=== PATIENT | male | born 1995 | race African-American/Black ===

== ENCOUNTER 2016-09-23 01:52 | Emergency (ER) | payer BC, OTHER ==
[~2016-09-23] VITALS: Ht 185.4 cm; Wt 82.0 kg
[2016-09-23 05:07] VITALS: BP 115/63
== END 2016-09-23 06:33 | disposition home or self-care (01) ==
LOC: ER 02:57
DX: T18.0XXA Foreign body in mouth, initial encounter (principal); F17.210 Nicotine dependence, cigarettes, uncomplicated; G95.89 Other specified diseases of spinal cord; X58.XXXA Exposure to other specified factors, initial encounter; Y93.89 Activity, other specified; Y92.89 Other specified places as the place of occurrence of the external cause
CPT/HCPCS: 70490; 71250; 99284

== ENCOUNTER 2024-06-06 18:18 | Inpatient (IN) | payer BC, OTHER ==
[~2024-06-06] VITALS: Ht 182.9 cm; Wt 83.5 kg
[2024-06-06] MEDS: MORPHINE SULFATE 4 MG/ML INJ (FOR IV/IM USE) IV STA (19:04)
[2024-06-06] MEDS: ONDANSETRON HCL 4MG/2ML INJ IV STA (19:05)
[2024-06-06 20:01] LABS: BASOPHILS % 0.2 % (0.0-2.0); EOSINOPHILS % 0.1 % (0.0-5.0); HEMATOCRIT. 43.4 % (42.0-52.0); HEMOGLOBIN. 14.4 g/dL (14.0-18.0); LYMPHOCYTES % 10.5 % (20.0-50.0); MEAN CORPUSCULAR HEMOGLOBIN 29.7 pg (28.0-32.0); MEAN CORPUSCULAR HGB CONC 33.3 g/dL (31.0-37.0); MEAN CORPUSCULAR VOLUME 89.2 fL (80.0-94.0); MEAN PLATELET VOLUME 8.9 fl (7.4-10.4); MONOCYTES % 10.6 % (2.0-8.0); NEUTROPHILS % 78.6 % (40.0-76.0); PLATELET 236 x1000/uL (130-400); RED BLOOD CELL COUNT 4.86 mill/uL (4.7-6.1); RED CELL DISTRIBUTION WIDTH 14.5 % (11.6-14.6); WHITE BLOOD COUNT 12.2 x1000/uL (4.5-11.0)
[2024-06-06 20:12] LABS: CHLORIDE 96 mEq/L (98-107); POTASSIUM 4.1 mEq/L (3.5-5.1); SODIUM 135 mEq/L (136-145)
[2024-06-06 20:13] LABS: CALCIUM 9.6 mg/dL (8.7-10.4); CARBON DIOXIDE 21 mEq/L (21-32); INR 1.1; PARTIAL THROMBOPLASTIN TIME 30.5 sec (23.4-31.0); PROTHROMBIN TIME 11.8 sec (9.6-11.0)
[2024-06-06 20:18] LABS: CREATININE 0.9 mg/dL (0.6-1.3); GLUCOSE 70 mg/dL (70-105); UREA NITROGEN BLOOD 12 mg/dL (9-23)
[2024-06-06 20:20] LABS: TROPONIN I HIGH SENSITIVITY 7 ng/L (3.0-53)
[2024-06-06] MEDS: HYDROMORPHONE HCL/PF 2MG/ML INJ IV ONE (20:35)
[2024-06-07] MEDS ORDERED: CLONIDINE 0.1MG TABLET PO PRN
[2024-06-07] MEDS ORDERED: LORAZEPAM 0.5MG TABLET PO PRN
[2024-06-07] MEDS ORDERED: IPRATROPIUM/ALBUTEROL 0.5-3(2.5)MG/3ML NEB HHN PRN
[2024-06-07] MEDS ORDERED: ONDANSETRON HCL 4MG/2ML INJ IV PRN
[2024-06-07] MEDS ORDERED: ACETAMINOPHEN 325MG TABLET PO PRN
[2024-06-07] MEDS ORDERED: MAGNESIUM/ALUMINUM HYDROXIDE/SIMETHICONE 30ML UDC PO PRN
[2024-06-07] MEDS ORDERED: DOCUSATE SODIUM 100MG CAPSULE PO PRN
[2024-06-07] MEDS: SODIUM CHLORIDE 0.9% 1,000 ML IV ONE (00:27)
[2024-06-07 00:39] LABS: TROPONIN I HIGH SENSITIVITY 9 ng/L (3.0-53)
[2024-06-07] MEDS: HYDROMORPHONE HCL/PF 2MG/ML INJ IV ONE (01:08)
[2024-06-07] MEDS: IOHEXOL-350 100 ML BOTTLE ONE (03:00)
[2024-06-07 03:47] LABS: TROPONIN I HIGH SENSITIVITY 15 ng/L (3.0-53)
[2024-06-07] MEDS: PANTOPRAZOLE 40MG DR TABLET PO SCH (09:13)
[2024-06-07] MEDS: KETOROLAC 30MG/ML VIAL IV NR (09:13)
[2024-06-07] MEDS ORDERED: AMLODIPINE 2.5MG TABLET PO NR (11:15)
[2024-06-07 12:00] VITALS: BP 113/75; PULSE 61; RESP 20; TEMP 36.7; O2SAT 100
[2024-06-07] MEDS: GUAIFENESIN 200MG/10ML SUGAR FREE UDC PO PRN (14:40)
[2024-06-07 16:00] VITALS: BP 113/70; PULSE 90; RESP 20; TEMP 36.1; O2SAT 98
[2024-06-07 16:04] VITALS: BP 113/75; PULSE 100; RESP 16; TEMP 37
[2024-06-07] MEDS ORDERED: PNEUMOCOCCAL 20-VAL CONJ-DIP CRM 0.5ML IM ONE (18:00)
[2024-06-07] MEDS ORDERED: INFLUENZA VACCINE 05/PF 0.5 ML SYRINGE IM ONE (18:00)
[2024-06-07 18:07] LABS: BASOPHILS % 0.6 % (0.0-2.0); EOSINOPHILS % 1.6 % (0.0-5.0); HEMOGLOBIN. 14.2 g/dL (14.0-18.0); LYMPHOCYTES % 28.5 % (20.0-50.0); MEAN CORPUSCULAR HEMOGLOBIN 29.7 pg (28.0-32.0); MEAN CORPUSCULAR VOLUME 89.9 fL (80.0-94.0); MEAN PLATELET VOLUME 9.2 fl (7.4-10.4); MONOCYTES % 12.5 % (2.0-8.0); NEUTROPHILS % 56.8 % (40.0-76.0); PLATELET 198 x1000/uL (130-400); RED BLOOD CELL COUNT 4.78 mill/uL (4.7-6.1); RED CELL DISTRIBUTION WIDTH 14.3 % (11.6-14.6)
[2024-06-07 18:38] LABS: CREATINE KINASE MB FRACTION 0.9 ng/mL (0.5-3.6)
[2024-06-07 18:40] LABS: ALANINE AMINOTRANSFERASE 15 IU/L (10-49); ALBUMIN 4.1 g/dL (3.2-4.8); ASPARTATE AMINOTRANSFERASE 22 IU/L (<34); BILIRUBIN DIRECT 0.2 mg/dL (<=3.0); BILIRUBIN TOTAL 0.8 mg/dL (0.1-1.0); PROTEIN TOTAL 7.4 g/dL (6.0-8.3)
[2024-06-07 18:43] LABS: T4 FREE 1.21 ng/dL (0.89-1.76); THYROID STIMULATING HORMONE 1.71 uIU/mL (0.55-4.78)
[2024-06-07 18:44] LABS: LACTIC ACID 2.4 mmol/L (0.4-2.0)
[2024-06-07 20:00] VITALS: BP 121/65; PULSE 79; RESP 18; TEMP 36.1; O2SAT 97
[2024-06-07 22:12] LABS: CREATINE KINASE MB FRACTION 2.1 ng/mL (0.5-3.6)
[2024-06-07] MEDS: KETOROLAC 15MG/ML VIAL IV NR (23:55)
[2024-06-07] MEDS: NICOTINE 14MG PATCH TD SCH (23:56)
[2024-06-08] VITALS: BP 105/65; PULSE 89; RESP 19; TEMP 36.9; O2SAT 97
[2024-06-08 04:00] VITALS: BP 93/61; PULSE 65; RESP 18; TEMP 36.3; O2SAT 97
[2024-06-08 06:49] LABS: CHLORIDE 101 mEq/L (98-107); POTASSIUM 3.6 mEq/L (3.5-5.1); SODIUM 138 mEq/L (136-145)
[2024-06-08 06:50] LABS: CALCIUM 9.4 mg/dL (8.7-10.4); CARBON DIOXIDE 24 mEq/L (21-32)
[2024-06-08 06:55] LABS: CREATININE 0.9 mg/dL (0.6-1.3); GLUCOSE 90 mg/dL (70-105); TRIGLYCERIDE 92 mg/dL (0-150); UREA NITROGEN BLOOD 9 mg/dL (9-23)
[2024-06-08 06:56] LABS: LDL CHOLESTEROL 99 mg/dL (5-100)
[2024-06-08 06:57] LABS: HDL CHOLESTEROL 45 mg/dL (>55)
[2024-06-08 06:59] LABS: CHOLESTEROL 174 mg/dL (<200)
[2024-06-08 07:03] LABS: HEMATOCRIT. 44.9 % (42.0-52.0); MEAN CORPUSCULAR HEMOGLOBIN 29.9 pg (28.0-32.0); MEAN CORPUSCULAR HGB CONC 33.4 g/dL (31.0-37.0); MEAN CORPUSCULAR VOLUME 89.4 fL (80.0-94.0); MEAN PLATELET VOLUME 9.3 fl (7.4-10.4); PLATELET 209 x1000/uL (130-400); RED BLOOD CELL COUNT 5.02 mill/uL (4.7-6.1); RED CELL DISTRIBUTION WIDTH 14.2 % (11.6-14.6); WHITE BLOOD COUNT 4.4 x1000/uL (4.5-11.0)
[2024-06-08] MEDS: ACETAMINOPHEN 325MG TABLET PO PRN (07:27)
[2024-06-08 07:45] LABS: DIFFERENTIAL COMMENT 1
[2024-06-08 08:00] VITALS: BP 120/76; PULSE 65; RESP 20; TEMP 36.4; O2SAT 99
[2024-06-08] MEDS ORDERED: AMLODIPINE 2.5MG TABLET PO SCH (09:00)
[2024-06-08] MEDS: ENOXAPARIN 40MG/0.4ML SYR SUBCUT SCH (10:16)
[2024-06-08] MEDS: ASPIRIN 81MG TABLET PO SCH (10:16)
[2024-06-08 11:40] LABS: CREATINE KINASE MB FRACTION 0.6 ng/mL (0.5-3.6)
[2024-06-08 12:00] VITALS: BP 116/75; PULSE 86; RESP 20; TEMP 37.1; O2SAT 98
[2024-06-08] MEDS ORDERED: TOPUD PO (12:58)
[2024-06-08] MEDS ORDERED: PANT40TA51 PO (12:58)
[2024-06-08] MEDS ORDERED: ASPI-1160 PO (12:58)
[2024-06-08 15:49] VITALS: BP 137/69; PULSE 71; TEMP 98.3; O2SAT 100
[2024-06-08 16:53] LABS: *AMPHETAMINES SCREEN URINE NEGATIVE (NEGATIVE); *BARBITURATES SCREEN URINE NEGATIVE (NEGATIVE); *BENZODIAZEPINES SCREEN URINE NEGATIVE (NEGATIVE); *COCAINE SCREEN URINE PRESUMPTIVE POSITIVE (NEGATIVE); CANNABINOID URINE SCREEN PRESUMPTIVE POSITIVE (NEGATIVE); ECSTASY MDMA SCREEN URINE NEGATIVE (NEGATIVE); METHADONE URINE SCREEN NEGATIVE (NEGATIVE); OPIATES URINE SCREEN NEGATIVE (NEGATIVE); PHENCYCLIDINE URINE SCREEN NEGATIVE (NEGATIVE)
[2024-06-09 16:35] LABS: PLATELET ESTIMATE NORMAL
== END 2024-06-08 17:42 | disposition home or self-care (01) | DRG 918 ==
LOC: ER 18:18 → MICUSO 23:43 → EDBEDREQ 23:45 → 8WST 06-07 10:34
PROVIDERS: ADMIT Hospitalist; ATTEND Hospitalist
DX: T40.5X1A Poisoning by cocaine, accidental (unintentional), initial encounter (principal); E87.1 Hypo-osmolality and hyponatremia; F17.210 Nicotine dependence, cigarettes, uncomplicated; D72.829 Elevated white blood cell count, unspecified; I10 Essential (primary) hypertension; E66.9 Obesity, unspecified; F14.10 Cocaine abuse, uncomplicated; Z79.82 Long term (current) use of aspirin; Z68.25 Body mass index [BMI] 25.0-25.9, adult; Y92.89 Other specified places as the place of occurrence of the external cause
CPT/HCPCS: 36415; 71045; 71275; 74174; 80048; 80061; 80076; 80305; 82550; 82553; 83605; 83880; 84439; 84443; 84484; 85025; 85379; 93005; 99291; J1171; J1650; J1885; J2270; J2405; J7030; Q9967